=== PATIENT | female | born 1985 | race Two or more races ===

== ENCOUNTER 2019-12-01 17:09 | Emergency (ER) | payer MEDICAID, OTHER ==
[~2019-12-01] VITALS: Ht 152.4 cm; Wt 77.1 kg
[2019-12-01 18:25] LABS: Urine Bacteria FEW /hpf (None Seen); Urine Blood Negative /uL (Negative); Urine Mucus FEW (None Seen); Urine Specific Gravity 1.032 (1.001-1.035); Urine WBC 16 /hpf (0 - 5)
[2019-12-01 19:23] LABS: Basophils # (auto) 0.1 10 ^3/uL (0-0.2); Basophils % (auto) 0.6 % (0.0-2.0); Eosinophils # (auto) 0.1 10 ^3/uL (0-0.8); Eosinophils % (auto) 0.6 % (0.0-7.0); Hematocrit 42.8 % (36.0-46.0); Hemoglobin 14.6 g/dL (12.2-16.2); Lymphocytes # (auto) 1.7 10 ^3/uL (0.4-5.4); Lymphocytes % (auto) 19.1 % (10.0-50.0); Mean Corpuscular Hemoglobin 29.7 pg (28.0-32.0); Mean Corpuscular Hgb Conc. 34.1 g/dL (32.0-36.0); Mean Corpuscular Volume 87.1 fL (80.0-100.0); Monocytes # (auto) 0.5 10 ^3/uL (0-1.3); Monocytes % (auto) 5.9 % (0.0-12.0); Neutrophils # (auto) 6.6 10 ^3/uL (1.6-8.6); Neutrophils % (auto) 73.8 % (37.0-80.0); Platelet Count (auto) 250 10^3/uL (140-450); Red Blood Cells 4.91 10^6/uL (4.0-5.20); Red Cell Distribution Width 12.7 % (11.8-14.3); White Blood Cell 8.9 10^3/uL (4.4-10.8)
[2019-12-01 19:33] LABS: Anion Gap 6 (5-15); Blood Urea Nitrogen 9 mg/dL (7-18); Calcium 8.7 mg/dL (8.5-10.1); Carbon Dioxide 25 mmol/L (21-32); Chloride 105 mmol/L (98-107); Glucose 93 mg/dL (74-106); Potassium 3.8 mmol/L (3.5-5.1); Sodium 136 mmol/L (136-145)
[2019-12-01 19:38] LABS: Alanine Aminotransferase 53 U/L (13-56); Alkaline Phosphatase 94 U/L (45-117); Aspartate Aminotransferase 36 U/L (15-37); Bilirubin, Total 0.4 mg/dL (0.2-1.0); GFR African American 115 mL/min; GFR Non-African American 95 mL/min; Total Protein 7.6 g/dL (6.4-8.2)
[2019-12-01] MEDS ORDERED: cefTRIAXone SOD 1,000 MG VL IM ONE (20:30)
[2019-12-01] MEDS ORDERED: ALBUTEROL SULF 2.5 MG/0.5ML(0.5%) NEB SOLN NEB ONE (20:30)
[2019-12-01] MEDS ORDERED: ASPirin 81 mg TAB PO ONE (20:30)
[2019-12-01] MEDS ORDERED: PANTOPRAZOLE 40 MG TAB PO ONE (20:30)
[2019-12-01] MEDS ORDERED: IPRATROPIUM BROM 0.5 MG/2.5ML INH SOL NEB ONE (20:30)
[2019-12-01] MEDS ORDERED: methylPREDNISolone SOD SUCC 125 MG/2 ML VL IM ONE (20:30)
[2019-12-01 21:33] LABS: Alcohol, Urine < 3.0 mg/dL (0-10); Amphetamine Screen, Urine NEGATIVE (NEGATIVE); Barbiturate Scree,Urine NEGATIVE (NEGATIVE); Benzodiazephine Screen, Urine NEGATIVE (NEGATIVE); Cannabinoid Screen, Urine NEGATIVE (NEGATIVE); Cocaine Screen, Urine NEGATIVE (NEGATIVE); Opiate Scree,Urine NEGATIVE (NEGATIVE); Phencyclidine Screen, Urine NEGATIVE (NEGATIVE)
[2019-12-02 01:05] VITALS: BP 150/81
== END 2019-12-02 01:12 | disposition home or self-care (01) ==
LOC: ER 17:09
DX: J40 Bronchitis, not specified as acute or chronic (principal); R07.89 Other chest pain; K29.70 Gastritis, unspecified, without bleeding; N39.0 Urinary tract infection, site not specified
CPT/HCPCS: 36415; 71045; 80053; 80307; 81001; 81025; 83880; 84443; 84484; 85025; 93005; 96372; 99285; J0696; J2930